=== PATIENT | male | born 1965 | race African-American/Black ===

== ENCOUNTER 2016-06-05 20:49 | Emergency (ER) | payer MEDICAID ==
[~2016-06-05] VITALS: Ht 180.3 cm; Wt 108.9 kg
[~2016-06-05 20:49] MED LIST: UNOBMED
[2016-06-05 21:20] VITALS: BP 115/72
--- NOTE | 2016-06-05 21:41 | Emergency Room Report ---
History of Present Illness General Chief Complaint: General Complaint Source: Patient, EMS Present Illness HPI Patient presents with complaints of lightheadedness and generally not feeling well He reports starting several new medications including a beta adan Was not sure of the medication contributed to this Patient reports feeling this way essentially one to 2 hours after taking his medications throughout the day Denies any chest pain or short of breath denies any back or flank pain denies any fever or chills denies any neck pain or photophobia Patient has had a essentially near syncopal feeling when he stands and with moving Allergies: Coded Allergies: IODINE (Verified Allergy, Unknown, 06/05/16) SHELLFISH DERIVED (Verified Allergy, Unknown, 06/05/16) Patient History Past Medical History: see triage record Pertinent Family History: none Reviewed Nursing Documentation: PMH: Agreed, PSxH: Agreed Nursing Documentation-PMH Past Medical History: No History, Except For Hx Cardiac Problems: Yes - [employer] Hx Hypertension: Yes Hx Pacemaker: Yes History Of Psychiatric Problem: Yes - Scizopherenia Review of Systems All Other Systems: negative except mentioned in HPI Physical Exam Vital Signs Date Time Temp Pulse Resp B/P Pulse Ox O2 Delivery O2 Flow Rate FiO2 06/05/16 20:46 98.4 70 16 129/86 98 Sp02 EP Interpretation: reviewed, normal General Appearance: well appearing, no apparent distress Head: normocephalic, atraumatic Eyes: bilateral eye EOMI, bilateral eye PERRL ENT: hearing grossly normal, normal pharynx, TMs + canals normal, uvula midline Neck: full range of motion, supple, no meningismus, no bony tend Respiratory: lungs clear, normal breath sounds, no rhonchi, no respiratory distress, no retraction, no accessory muscle use Cardiovascular #1: normal peripheral pulses, regular rate, rhythm, no edema, no gallop, no JVD, no murmur Gastrointestinal: normal bowel sounds, non tender, soft, no mass, no organomegaly, non-distended, no guarding, no hernia, no pulsatile mass, no rebound Genitourinary: no CVA tenderness Musculoskeletal: normal inspection Neurologic: oriented x3, responsive, 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, motor strength/ tone normal, sensory intact Psychiatric: mood/affect normal Skin: normal color, no rash, warm/dry, palpation normal Lymphatic: normal inspection, no adenopathy Medical Decision Making Diagnostic Impression: Primary Impression: Near syncope Additional Impressions: Medication reaction Orthostatic hypotension ER Course Patient is a fairly complex patient with multiple differential to consideration including but not limited to cardiac cardiopulmonary and vascular emergencies Patient's the level has a slightly increased from previous Patient also has had increased beta-blocking indication along with other medications including clonidine Patient's symptoms could also be related to medication reaction Patient continues to do better at this time and requests further inpatient care Labs Test 06/05/16 21:59 White Blood Count 7.7 K/UL (4.8-10.8) Red Blood Count 3.58 M/UL (4.70-6.10) Hemoglobin 12.1 G/DL (14.2-18.0) Hematocrit 36.9 % (42.0-52.0) Mean Corpuscular Volume 103 FL (80-99) Mean Corpuscular Hemoglobin 33.9 PG (27.0-31.0) Mean Corpuscular Hemoglobin Concent 32.8 G/DL (32.0-36.0) Red Cell Distribution Width 12.0 % (11.6-14.8) Platelet Count 249 K/UL (150-450) Mean Platelet Volume 4.9 FL (6.5-10.1) Neutrophils (%) (Auto) 62.1 % (45.0-75.0) Lymphocytes (%) (Auto) 25.8 % (20.0-45.0) Monocytes (%) (Auto) 8.4 % (1.0-10.0) Eosinophils (%) (Auto) 2.6 % (0.0-3.0) Basophils (%) (Auto) 1.0 % (0.0-2.0) Prothrombin Time 11.2 SEC (9.30-11.50) Prothromb Time International Ratio 1.1 (0.9-1.1) Activated Partial Thromboplast Time 27 SEC (23-33) Urine Color Yellow Urine Appearance Clear Urine pH 8 (4.5-8.0) Urine Specific Drake 1.010 (1.005-1.035) Urine Protein Negative (NEGATIVE) Urine Glucose (UA) Negative (NEGATIVE) Urine Ketones Negative (NEGATIVE) Urine Occult Blood Negative (NEGATIVE) Urine Nitrite Negative (NEGATIVE) Urine Bilirubin Negative (NEGATIVE) Urine Urobilinogen Normal MG/DL (0.0-1.0) Urine Leukocyte Esterase Negative (NEGATIVE) Sodium Level 142 mEQ/L (135-145) Potassium Level 3.8 mEQ/L (3.4-4.9) Chloride Level 104 mEQ/L (98-107) Carbon Dioxide Level 25 mEQ/L (20-30) Anion Gap 13 (5-15) Blood Urea Nitrogen 18 mg/dL (7-23) Creatinine 1.7 mg/dL (0.7-1.2) Estimat Glomerular Filtration Rate 51.5 mL/min (>60) Glucose Level 89 mg/dL (74-106) Lactic Acid Level 1.00 mmol/L (0.66-2.22) Calcium Level 8.4 mg/dL (8.6-10.2) Total Bilirubin 0.3 mg/dL (0.0-1.2) Aspartate Amino Transf (AST/SGOT) 23 U/L (5-40) Alanine Aminotransferase (ALT/SGPT) 17 U/L (3-41) Alkaline Phosphatase 54 U/L (40-129) Total Creatine Kinase 209 U/L (38-174) Troponin I < 0.30 ng/mL (<=0.30) Total Protein 5.2 g/dL (6.6-8.7) Albumin 3.1 g/dL (3.5-5.2) Globulin 2.1 g/dL Albumin/Globulin Ratio 1.4 (1.0-2.7) Lipase 23 U/L (< 60) EKG Diagnostic Results Rate: normal Rhythm: NSR ST Segments: no acute changes Rhythm Strip Diag. Results EP Interpretation: yes Rate: 67 Rhythm: NSR, no PVC's, no ectopy Chest X-Ray Diagnostic Results EP Interpretation: Yes Findings: no consolidation, no effusion, no pneumothorax, no acute cardiopulmonary disease - Pacemaker in place Number of Views: 1 Last Vital Signs Date Time Temp Pulse Resp B/P Pulse Ox O2 Delivery O2 Flow Rate FiO2 06/05/16 20:46 98.4 70 16 129/86 98 Status: improved Disposition: XFER SHT-TRM HOSP Condition: Improved Referrals: [facility],REFERRING (PCP) PRAKASH JONES D.O. Jun 05, 2016 21:41
[2016-06-05 22:22] LABS: EOSINOPHILS % (AUTO) 2.6 % (0.0-3.0); LYMPHOCYTES % (AUTO) 25.8 % (20.0-45.0); MEAN CORPUSCULAR HEMOGLOBIN 33.9 PG (27.0-31.0); MEAN CORPUSCULAR HGB CONC 32.8 G/DL (32.0-36.0); MEAN CORPUSCULAR VOLUME 103 FL (80-99); MEAN PLATELET VOLUME 4.9 FL (6.5-10.1); MONOCYTES % (AUTO) 8.4 % (1.0-10.0); NEUTROPHILS % (AUTO) 62.1 % (45.0-75.0); PLATELET COUNT 249 K/UL (150-450); RED BLOOD COUNT 3.58 M/UL (4.70-6.10); WHITE BLOOD COUNT 7.7 K/UL (4.8-10.8)
[2016-06-05 22:30] LABS: INR 1.1 (0.9-1.1); PROTHROMBIN TIME 11.2 SEC (9.30-11.50)
[2016-06-05 22:32] LABS: TROPONIN I < 0.30 ng/mL (<=0.30)
[2016-06-05 22:33] LABS: ALBUMIN/GLOBULIN RATIO 1.4 (1.0-2.7); CALCIUM 8.4 mg/dL (8.6-10.2); CREATININE 1.7 mg/dL (0.7-1.2); GLOMERULAR FILTRATION RATE 51.5 mL/min (>60); POTASSIUM 3.8 mEQ/L (3.4-4.9); TOTAL PROTEIN 5.2 g/dL (6.6-8.7)
[2016-06-05 22:35] LABS: APPEARANCE,URINE CLEAR; KETONES,URINE NEGATIVE (NEGATIVE); LEUKOCYTE ESTERASE ,URINE NEGATIVE (NEGATIVE); NITRITE,URINE NEGATIVE (NEGATIVE); PH,URINE 8 (4.5-8.0); PROTEIN,URINE NEGATIVE (NEGATIVE); UROBILINOGEN,URINE NORMAL MG/DL (0.0-1.0)
[2016-06-05 22:43] LABS: CKMB 3.8 ng/mL (< 6.7)
[2016-06-06] VITALS: BP 116/62
[2016-06-06 01:09] VITALS: BP 118/82
--- NOTE | 2016-06-06 10:11 | Diagnostic Imaging Report ---
Indication: Chest Pain Comparison: 05/20/12 A single view chest radiograph was obtained. Findings: Cardiomediastinal silhouette is normal. Pacemaker noted on the left. Lungs are clear. Impression: No acute disease
--- NOTE | 2016-06-07 15:13 | Cardiology Report ---
APPROVED REPORT EKG Measurement Heart [id number] HI [id number] Normal sinus rhythm Normal ECG
== END 2016-06-06 00:25 | disposition short-term general hospital (02) ==
LOC: EDBD 20:49 → EMR 21:23
DX: I95.2 Hypotension due to drugs (principal); F20.9 Schizophrenia, unspecified; I10 Essential (primary) hypertension; Z95.0 Presence of cardiac pacemaker; Z91.041 Radiographic dye allergy status; Z91.013 Allergy to seafood
CPT/HCPCS: 36415; 71010; 80053; 81003; 82550; 82553; 83605; 83690; 83880; 84484; 85025; 85610; 85730; 87040; 93005; 96374